=== PATIENT | female | born 1995 | race African-American/Black ===

== ENCOUNTER 2020-06-08 22:48 | Emergency (ER) | payer MEDICAID, OTHER ==
--- NOTE | 2020-06-08 23:47 | ER Document Report ---
ED Flu Like - General Chief Complaint: Flu Symptoms Stated Complaint: FEVER, UNABLE TO EAT, CHILLS Time Seen by Provider: 06/08/20 23:38 Mode of Arrival: Ambulatory Information source: Patient - HPI Patient complains to provider of: Flulike symptoms Notes: Patient here with complaints of body aches, headache, fever sore throat, generalized weakness which started yesterday. She states that her temperature has been up to 101. She denies any difficulty breathing or swallowing. No chest pain or shortness of breath. No significant cough. No rash. No abdominal pain. No nausea, vomiting, diarrhea. No numbness, tingling, weakness. Fever has improved with [id number] antipyretics. Nothing seems to make her body aches better or worse. Nothing seems to make her headache better or worse. She does have a history of migraines. No other complaints at this time. - Related Data Allergies/Adverse Reactions: No Known Allergies Allergy (Verified 06/08/20 23:37) Past Medical History - Social History Smoking Status: Never Smoker Frequency of alcohol use: Occasional Drug Abuse: None Family History: Reviewed & Not Pertinent Pulmonary Medical History: Reports: Hx Asthma Psychiatric Medical History: Reports: Hx Anxiety - Immunizations Immunizations up to date: Yes Hx Diphtheria, Pertussis, Tetanus Vaccination: Yes Review of Systems - Review of Systems -: Yes All other systems reviewed and negative Physical Exam - Vital signs Vitals: Temp Pulse Resp BP Pulse Ox 98.2 F 85 19 126/86 H 100 06/08/20 22:54 06/08/20 22:54 06/08/20 22:54 06/08/20 22:54 06/08/20 22:54 - Notes Notes: GENERAL: alert, cooperative, nontoxic, no distress. HEAD: normocephalic, atraumatic EYES: conjunctiva pink without discharge, no external redness or swelling. Pupils equal round react light bilaterally. Extraocular cells are intact bilaterally. EARS: no external swelling, no external redness, no mastoid redness, swelling, tenderness. Ear canals are clear without swelling or drainage. TMs pearly velázquez, no redness, no bulging, normal landmarks, no perforation. NOSE: atraumatic, no external swelling. clear rhinorrhea noted. MOUTH/THROAT: mucous membranes moist and pink, posterior pharynx without swelling or exudate. Mild erythema. No trismus or drooling. Voice is normal, no stridor. Uvula midline, no peritonsillar abscess. NECK: soft, supple, full range of motion, no meningismus. Anterior cervical lymphadenopathy. CHEST: no distress, lungs clear and equal throughout. No wheezing, rales, rhonchi. CARDIAC: regular rate and rhythm, no murmur EXTREMITIES: full range of motion of all extremities. No redness, no swelling. NEURO: alert and oriented A&O3, no focal deficits, full range of motion of all extremities. Cranial nerves II through XII are grossly intact. Equal push and pull both upper and lower extremities. PYSCH: appropriate mood, affect. Patient is cooperative. SKIN: pink, warm, dry, no rash. Course - Re-evaluation Re-evalutation: 06/09/20 00:47 Patient resting comfortably this time. Gone over the results with the patient. Questions been answered. Discharged home. Patient is nontoxic-appearing with stable vitals. Here with complaints of body aches and flulike symptoms which started yesterday. She states that she had a fever yesterday, no fever currently. Overall she looks well. She is in no distress. She is not hypoxic or tachypneic. Throat exam is benign both aside from some mild redness. No peritonsillar abscess or signs of epiglottitis. Lungs are clear and equal throughout. Patient has a nonfocal neuro exam. No neck stiffness. No signs of meningitis. Influenza and strep are negative. Covid is currently pending at this time. Patient will be instructed to quarantine until she gets her Covid results. If positive, she needs to quarantine for 10 days plus had no symptoms. If negative but she continues to have symptoms she should return get retested. Patient be discharged home with a prescription for NSAIDs for her myalgias as well as some Zofran for nausea. Follow-up if not better in the next 3 to 5 days, sooner for worsening symptoms, high fever, persistent vomiting, or any further concerns. The patient's emergency department workup and current diagnosis were explained to the patient and or family. Follow-up instructions were provided. Medications if prescribed were discussed. Instructions for when to return to the emergency department including specific worrisome symptoms were discussed with the patient and/or family. - Vital Signs Vital signs: Temp Pulse Resp BP Pulse Ox 98.2 F 85 19 126/86 H 100 06/08/20 22:54 06/08/20 22:54 06/08/20 22:54 06/08/20 22:54 06/08/20 22:54 - Laboratory Results Critical Laboratory Results Reviewed: No Critical Results - Radiology Results Critical Radiology Results Reviewed: No Critical Results Discharge - Discharge Clinical Impression: Viral syndrome, Myalgia, Person under investigation for COVID-19 Condition: Stable Disposition: HOME, SELF-CARE Instructions: COVID-19 Guidance for Persons Under Investigation, Viral Syndrome ([facility]) Additional Instructions: Take medications as prescribed. He may also take Tylenol as needed for pain. Drink plenty of fluids. You need to wait until your Covid swab comes back before you return to work. If your Covid swab is positive, you need to quarantine for a total of 10 days plus have no symptoms. If you continue to have symptoms and your Covid swab is negative, I would consider getting retested. In the meantime you should quarantine and avoid contact as much as possible. You can try taking [id number] zinc and vitamin C. Follow-up for any significant chest pain, severe shortness of breath, persistent vomiting, or for any further concerns. Prescriptions: Diclofenac Sodium [Voltaren 50 Mg Tablet.] 50 mg PO BID #20 tablet. Referrals: [facility] [Provider Group] - Follow up as needed
[2020-06-09 00:33] LABS: A TYPE INFLUENZA AG NEGATIVE (NEGATIVE); B INFLUENZA AG NEGATIVE (NEGATIVE)
[2020-06-09 01:32] VITALS: BP 134/72
== END 2020-06-09 01:31 | disposition home or self-care (01) ==
LOC: ER 22:48
DX: B34.9 Viral infection, unspecified (principal); R50.9 Fever, unspecified; R51.9 Headache, unspecified; R53.1 Weakness; M79.10 Myalgia, unspecified site; Z20.822 Contact with and (suspected) exposure to COVID-19
CPT/HCPCS: 99283; 36415; 87070; 87880; 87635; 87804; C9803